=== PATIENT | male | born 1975 | race Hispanic/Latino ===

== ENCOUNTER → 2018-01-10 | Outpatient (CLI) | payer MEDICAID | END | disposition home or self-care (01) | LOC: RAH 07:57 | PROVIDERS: ATTEND Internal Medicine | DX: N20.0 Calculus of kidney (principal); K80.20 Calculus of gallbladder without cholecystitis without obstruction; K42.9 Umbilical hernia without obstruction or gangrene | CPT/HCPCS: 74176 ==

== ENCOUNTER 2018-02-14 05:51 | Day surgery (SDC) | payer MEDICAID ==
[~2018-02-14] VITALS: Ht 154.9 cm; Wt 85.4 kg
[~2018-02-14 05:51] MED LIST: SODIUM CHLORIDE 0.9% 1000ML 1,000 ML IV ONE
[2018-02-14 06:20] VITALS: BP 148/82
[2018-02-14] MEDS ORDERED: CLON1TAB12 PO (06:49)
[2018-02-14] MEDS ORDERED: LORA-192 PO (06:49)
[2018-02-14] MEDS ORDERED: CLON0.5T12 PO (06:49)
[2018-02-14] MEDS ORDERED: ASPI-555 PO (06:49)
[2018-02-14] MEDS ORDERED: SAXA5TAB PO (06:49)
[2018-02-14] MEDS ORDERED: LACT10SO9 PO (06:49)
[2018-02-14] MEDS ORDERED: ESOM40CA PO (06:49)
[2018-02-14] MEDS ORDERED: LISI2.5T2 PO (06:49)
[2018-02-14] MEDS ORDERED: LINA145C PO (06:49)
[2018-02-14] MEDS ORDERED: PROPOFOL 10 MG/ML 20ML VIAL IV ONE (07:23)
[2018-02-14] MEDS ORDERED: PHENYLEPHRINE HCL 10 MG/ML 1ML VIAL IV ONE (07:37)
[2018-02-14 07:53] VITALS: BP 78/46
[2018-02-14 07:58] VITALS: BP 97/58
[2018-02-14 08:03] VITALS: BP 96/54
[2018-02-14 08:13] VITALS: BP 110/73
== END 2018-02-14 08:34 | disposition home or self-care (01) ==
LOC: DAH 05:51
PROVIDERS: ATTEND Internal Medicine Gastroenterology
DX: K62.89 Other specified diseases of anus and rectum (principal); K57.30 Diverticulosis of large intestine without perforation or abscess without bleeding; K56.2 Volvulus; K31.89 Other diseases of stomach and duodenum; K21.9 Gastro-esophageal reflux disease without esophagitis; L40.9 Psoriasis, unspecified; Z79.899 Other long term (current) drug therapy; Z68.37 Body mass index [BMI] 37.0-37.9, adult; E66.01 Morbid (severe) obesity due to excess calories
CPT/HCPCS: 43239; 45378; 88305; A4606; J2370; J2704; J7030; 45380

== ENCOUNTER → 2018-07-11 | Outpatient (CLI) | payer MEDICAID ==
[~2018-07-11] MED LIST changes: +ASPI-555 PO; +CLON0.5T12 PO; +CLON1TAB12 PO; +ESOM40CA PO; +LACT10SO9 PO; +LINA145C PO; +LISI2.5T2 PO; +LORA-192 PO; +SAXA5TAB PO; -SODIUM CHLORIDE 0.9% 1000ML 1,000 ML IV ONE
== END | disposition home or self-care (01) ==
LOC: RAH 11:05
PROVIDERS: ATTEND Internal Medicine
DX: J40 Bronchitis, not specified as acute or chronic (principal)
CPT/HCPCS: 71046

== ENCOUNTER 2021-02-04 02:06 | Emergency (ER) | payer MEDICAID ==
[~2021-02-04] VITALS: Ht 154.9 cm; Wt 78.0 kg
[~2021-02-04 02:06] MED LIST changes: -ASPI-555 PO; +ASPI-556 PO; -CLON0.5T12 PO; +CLON0.5T4 PO; +LISI2.5T13 PO; -LISI2.5T2 PO
[2021-02-04] MEDS ORDERED: 0.9%NACL 1000ML 1,000 ML IV ONE (02:30)
[2021-02-04] MEDS ORDERED: ONDANSETRON 4MG INJ IVP ONE (02:30)
[2021-02-04] MEDS ORDERED: DIPHENOXYLATE HCL/ATROPINE 2.5/0.025 MG TAB PO ONE (02:30)
[2021-02-04 03:04] LABS: BASOPHILS % (AUTO) 0.5 % (0.0-5.0); EOSINOPHILS % (AUTO) 1.2 % (0.0-8.0); HEMATOCRIT 51.1 % (42-54); LYMPHOCYTES % (AUTO) 22.7 % (21.0-51.0); MEAN CORPUSCULAR HEMOGLOBIN 29.3 pg (27.0-33.0); MEAN CORPUSCULAR HGB CONC 32.5 g/dL (32.0-36.0); MEAN CORPUSCULAR VOLUME 90.3 fL (79-99); MONOCYTES % (AUTO) 4.5 % (3.0-13.0); NEUTROPHILS % (AUTO) 70.6 % (40.0-77.0); PLATELET COUNT (AUTO) 197 K/uL (130-400); RED BLOOD CELL COUNT(AUTO) 5.66 MIL/uL (4.50-6.20); RED CELL DISTRIBUTION WIDTH 15.9 % (11.0-15.5); WHITE BLOOD COUNT (AUTO) 12.8 K/uL (4.8-10.8)
[2021-02-04 03:15] LABS: CREATININE 1.4 mg/dL (0.5-1.5); POTASSIUM 4.2 mmol/L (3.5-5.1)
[2021-02-04 03:19] LABS: ALBUMIN 3.7 g/dL (3.5-5.0); BILIRUBIN,TOTAL 1.3 mg/dL (0.2-1.0); TOTAL PROTEIN, SERUM 9.5 g/dL (6.0-8.3)
[2021-02-04 03:59] VITALS: BP 116/67
[2021-02-04] MEDS ORDERED: ONDA4TAB4 PO (04:26)
== END 2021-02-04 04:40 | disposition home or self-care (01) ==
LOC: EDH 02:06
DX: K52.9 Noninfective gastroenteritis and colitis, unspecified (principal); E86.9 Volume depletion, unspecified; E11.9 Type 2 diabetes mellitus without complications; I10 Essential (primary) hypertension; K21.9 Gastro-esophageal reflux disease without esophagitis; Z79.82 Long term (current) use of aspirin; Z79.84 Long term (current) use of oral hypoglycemic drugs; Z79.899 Other long term (current) drug therapy
CPT/HCPCS: 36415; 74018; 80053; 83690; 85025; 96361; 96374; 99284; J2405; J7030